=== PATIENT | female | born 1990 | race Caucasian/White ===

== ENCOUNTER 2018-09-21 12:20 | Emergency (ER) | payer BC ==
[~2018-09-21] VITALS: Ht 167.6 cm; Wt 59.0 kg
[2018-09-21 13:30] VITALS: BP 116/73
== END 2018-09-21 13:31 | disposition home or self-care (01) ==
LOC: M.ERS 12:20
DX: S60.221A Contusion of right hand, initial encounter (principal); Z91.040 Latex allergy status; X50.9XXA Other and unspecified overexertion or strenuous movements or postures, initial encounter; Y93.89 Activity, other specified; Y92.89 Other specified places as the place of occurrence of the external cause; Y99.8 Other external cause status

== ENCOUNTER 2019-09-18 08:07 | Emergency (ER) | payer BC ==
[~2019-09-18] VITALS: Ht 167.6 cm; Wt 54.4 kg
[2019-09-18 08:49] LABS: HEMATOCRIT 42.5 % (37.0-47.0); HEMOGLOBIN 14.9 gm/dL (12.0-15.0); MCH 31.5 pg (26.0-34.0); MCHC 35.1 g/dL (28.0-37.0); MCV 89.7 fL (80.0-100.0); MPV 7.4 fl. (7.2-11.1); NUCLEATED RBCS 0 /100WBC; PLATELET COUNT* 213 thou/uL (150-400); RBC 4.73 mil/uL (4.20-5.00); RDW-CV 13.2 % (10.5-14.5); WBC 5.8 thou/uL (4.0-11.0)
[2019-09-18 08:55] LABS: CREATININE 0.8 mg/dL (0.6-1.3); POTASSIUM 3.5 mmol/L (3.5-5.1)
[2019-09-18 09:00] LABS: ALBUMIN 3.7 g/dL (3.4-5.0); TOTAL BILIRUBIN 0.6 mg/dL (<0.1-1.0); TOTAL PROTEIN 7.2 g/dL (6.4-8.2)
[2019-09-18 09:30] LABS: ABSOLUTE EOSINOPHILS 0.1 thou/uL (0.0-0.7); ABSOLUTE LYMPHOCYTES 0.3 thou/uL (0.8-5.3); ABSOLUTE MONOCYTES 0.4 thou/uL (0.0-1.2); PLATELET ESTIMATE ADEQUATE
[2019-09-18 09:49] LABS: URINE BLOOD TRACE (Negative); URINE CLARITY CLEAR; URINE COLOR YELLOW; URINE GLUCOSE-RANDOM NEGATIVE (Negative); URINE KETONES 2+ (Negative); URINE LEUKOCYTES-REFLEX NEGATIVE (Negative); URINE NITRITE-REFLEX NEGATIVE (Negative); URINE PROTEIN NEGATIVE (Negative); URINE SPECIFIC GRAVITY >= 1.030 (1.005-1.030); URINE UROBILINOGEN 0.2 E.U./dl (0.2-1.0)
[2019-09-18 09:51] LABS: ICTOTEST (BILI CONFIRMATORY) Negative (Negative); URINE BILIRUBIN 1+ (Negative)
[2019-09-18 10:30] LABS: INFLUENZA A ANTIGEN Negative (Negative); INFLUENZA B ANTIGEN Negative (Negative)
[2019-09-18] MEDS ORDERED: ZOFRAN ODT4 MG PO (10:38)
[2019-09-18 11:10] VITALS: BP 109/70
== END 2019-09-18 11:12 | disposition home or self-care (01) ==
LOC: M.ERS 08:07
PROVIDERS: Emergency Medicine
DX: A08.4 Viral intestinal infection, unspecified (principal); R11.2 Nausea with vomiting, unspecified; Z91.040 Latex allergy status